=== PATIENT | female | born 1955 | race Caucasian/White ===

== ENCOUNTER 2024-12-26 10:21 | Outpatient (CLI) | payer MEDICARE, OTHER ==
[~2024-12-26] VITALS: Ht 166.4 cm; Wt 54.4 kg
[2024-12-26] MEDS ORDERED: iohexol 300mg/ml 100ml inj. ONE (10:56)
[2024-12-26 11:31] LABS: CREATININE 1.21 MG/DL (0.40-0.90); TOTAL CARBON DIOXIDE 24.3 MMOL/L (24-32); eGFR 44 ML/MIN
[2024-12-26 12:47] LABS: ABG BASE EXCESS -4.8 mmol/L (-2.0-3.0); ABG HCO3 19.6 mmol/L (21.0-28.0); ABG OXYGEN SATURATION 94.6 % (94.0-98.0); ABG PCO2 (T) 34.0 mmHg (32.0-45.0); ABG PH (T) 7.379 (7.350-7.450); ABG PO2 (T) 79.7 mmHg (83.0-108.0); ALLEN'S TEST POSITIVE; FCOHb 2.1 % (0.5-1.5); FHHb 5.3 % (0.0-5.0); FIO2 21.0 mmHg/%; FMetHb 0.3 % (0.0-1.5); FO2Hb 92.3 % (94.0-98.0); MODE ROOM AIR; PATIENT TEMPERATURE 37.0; TOTAL HEMOGLOBIN 10.2 G/dl (12.0-16.0)
[2024-12-26] MEDS: albuterol 2.5 MG/3 ML nebule NEB ONE (12:50)
[2024-12-26 12:52] VITALS: PULSE 90; RESP 16; O2SAT 95
[2024-12-26 13:04] VITALS: PULSE 83; RESP 16
--- NOTE | 2024-12-26 14:16 | RADIOLOGY REPORT ---
Procedure: CT CT CHEST W/ IV CONTRAST 12/26/2024 11:11 AM History: ENCOUNTER FOR OTHER PREPROCEDURAL EXAMINATION Comparison: None Technique: After the uneventful administration of contrast intravenously, CT imaging was performed th rough the chest. Coronal and sagittal reformations were performed by the technologist. 3D image postprocessing was performed on a dedicated workstation and images were used for interpretat ion and reporting. Radiation Dose : CT Dose: CTDI volume is 3.5 mGy. Dose-length product is 185.05 mGy*cm Findings: Lower neck: Normal thyroid. Lungs: Scarring in the posterior right upper lobe in anterior right middle lobe. Scarring/atelectasis / consolidation in the right lower lobe. Lungs are hyperinflated suggestive of COPD. 0.4 cm nodule in the left upper lobe, image 17. 0.5 cm nodule in the right upper lobe, image 33. Heart/Vascular Structures: Vascular calcifications of the aorta. Borderline cardiomegaly. 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 Musculoskeletal: No acute osseous abnormality. Osteopenia. Degenerative changes of the spine. Soft tissues: 4.5 cm fluid collection in the anterior chest wall between the 4th rib in the sternum. Upper abdomen: Hepatomegaly. IMPRESSION: 4.5 cm fluid collection in the anterior chest wall between the 4th rib in the sternum. Scarring in the posterior right upper lobe in anterior right middle lobe. Scarring/atelectasis / consolidation in the right lower lobe. 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
--- NOTE | 2024-12-26 16:58 | PROCEDURE NOTE - Respiratory ---
Procedure Note-Respiratory Providers to Copies To 1: YENIFER VU MD Procedure Name: This is a complete pulmonary function study dated December 26, 2024. Hemoglobin measurement was done as part of the study. There was also a room air blood gas obtained from this patient on the same date. Spirometry measurements: There is moderate reduction in both the forced vital capacity and the FEV1. The FEV1 ratio is normal. Several of the flow rate measurements are modestly reduced. After inhaled bronchodilator there is very slight improvement in some of the flow rate measurements. Lung volume measurements: All of the major lung volume determinations are in the normal range. Lung diffusion measurement: The DLCO uncorrected is somewhat reduced. When corrected for the patient's low hemoglobin the DLCO approaches the normal range. When corrected for alveolar volume measurement the DLCO measurement is well within normal limits. It is noted that the patient shows anemia with hemoglobin at 10.2 grams/deciliter. Airway resistance measurement: Airway resistance measurement is normal. Conclusion: This study is abnormal. There is evidence for obstructive ventilatory defect in the [id number] category. The obstructive airway process is only very slightly reversible with inhaled bronchodilator. 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 The lung diffusion capacity is normal. There is no evidence for a restrictive ventilatory defect. We have no previous studies for comparison. A blood gas was drawn from this patient while the patient was breathing room air. The blood pH is normal. The pCO2 is normal. There is very slight reduction in the room air PO2 level at 79 mmHg. It is noted that the patient has a very low-level of carbon monoxide bound to the hemoglobin. Carbon monoxide is attached to 2.1% of the total hemoglobin molecules. HARLEY PHELPS MD Dec 26, 2024 16:58
== END 2024-12-26 23:59 | disposition home or self-care (01) ==
LOC: RAD 10:21
PROVIDERS: ATTEND Surgery
DX: Z01.818 Encounter for other preprocedural examination (principal); C34.11 Malignant neoplasm of upper lobe, right bronchus or lung; J94.2 Hemothorax; J98.4 Other disorders of lung; R91.8 Other nonspecific abnormal finding of lung field; R16.0 Hepatomegaly, not elsewhere classified; I70.0 Atherosclerosis of aorta; M47.814 Spondylosis without myelopathy or radiculopathy, thoracic region
CPT/HCPCS: 36415; 36600; 71260; 80048; 82803; 85018; 94060; 94727; 94729; 94760; Q9967